=== PATIENT | female | born 1970 | race Caucasian/White ===

== ENCOUNTER 2024-03-19 08:25 | Day surgery (SDC) | payer OTHER ==
[2024-03-17 14:10] VITALS: BMI 20.6
[2024-03-19 10:42] VITALS: RESP 18; TEMP 97.5
[2024-03-19 14:17] VITALS: BP 112/68; PULSE 74
== END 2024-03-19 14:50 | disposition home or self-care (01) ==
LOC: FASU-ENDO 08:25
PROVIDERS: ATTEND Internal Medicine Gastroenterology
PROC: 0DBN8ZX Excision of Sigmoid Colon, Via Natural or Artificial Opening Endoscopic, Diagnostic (ICD-10-PCS; principal; 2024-03-19 10:15)
DX: Z12.11 Encounter for screening for malignant neoplasm of colon (principal); K63.5 Polyp of colon; K64.1 Second degree hemorrhoids
CPT/HCPCS: 88305-TC